=== PATIENT | female | born 1965 | race Caucasian/White ===

== ENCOUNTER 2021-05-12 07:02 | Emergency (ER) | payer BC, SELFPAY ==
--- NOTE | ~2021-05-12 | XR_ITS ---
EXAMINATION: XR ABDOMEN COMPLETE CLINICAL INDICATION: Abdominal distention, rule out obstruction. COMPARISON: Chest radiograph 07/14/2019. TECHNIQUE: 2 AP supine and single AP upright radiographs of the abdomen and pelvis. FINDINGS: Scattered bowel gas is identified in nondistended small and large bowel segments. Presumed cholecystectomy clips are identified in the right upper abdominal quadrant. A single surgical clip is projected over the expected location of the middle segment of the descending colon and may represent an orphaned clip. Scattered pelvic phleboliths are identified. The incidentally visualized lung bases are clear. No free intraperitoneal gas identified. XR/XR abdomen min 2V IMPRESSION: *Normal bowel gas pattern. No specific evidence of intestinal obstruction. No pneumoperitoneum identified.
--- NOTE | ~2021-05-12 | CT_ITS ---
EXAMINATION: CT ABDOMEN AND PELVIS WITHOUT CONTRAST CLINICAL INFORMATION: Diffuse abdominal pain. Questionable free clip in the left abdomen. COMPARISON: Abdominal radiograph done earlier today at 7:52 AM. TECHNIQUE: Multidetector volumetric imaging was performed from the superior aspect of the liver through the pubic symphysis. Sagittal and coronal reformatted images were obtained on the technologist's workstation. This CT examination was performed using dose optimization techniques as appropriate, variously including the following: *Automated exposure control *Adjustment of mA and/or kV according to patient size (this includes techniques or standardized protocols for targeted exams where dose is matched to indication/reason for exam; i.e. extremities or head) *Use of iterative reconstruction technique DLP: 382 mGy-cm FINDINGS: LUNG BASES: There are patchy, groundglass and linear-like opacities dependently in the lung bases. No pleural effusions. LIVER, GALLBLADDER, AND BILIARY TREE: The liver is normal in size, shape, and attenuation. No focal hepatic lesion or biliary ductal dilatation is present. Cholecystectomy. PANCREAS: Unremarkable. SPLEEN: Unremarkable. ADRENAL GLANDS: Unremarkable. KIDNEYS AND URETERS: The kidneys are normal in size, shape, and attenuation. No hydronephrosis, hydroureter, or calculi seen. No perinephric stranding. BLADDER: Unremarkable. GASTROINTESTINAL TRACT: The stomach and the small bowel are nondilated. The appendix is potentially identified on image 38 of series 3 without findings to suggest acute appendicitis. The majority of the colon is under distended limiting assessment of wall thickening and mural abnormalities. There is diverticulosis in the sigmoid colon without significant surrounding inflammatory changes to suspect acute diverticulitis. No bowel obstruction. High density elongated structure in the mesenteric fat of the anterior left upper abdomen measuring 0.8 cm in length (age: 32). ABDOMINAL WALL: No significant hernia is appreciated. LYMPH NODES: No lymphadenopathy by size criteria. A few prominent bilateral inguinal lymph nodes are of uncertain significance. VASCULAR: Atherosclerotic disease. The abdominal aorta is non aneurysmatic. PELVIC VISCERA: No suspicious pelvic lesions. OSSEOUS STRUCTURES: No acute or aggressive osseous abnormalities. Multilevel spondylosis with disc bulges, anterior osteophytes and facet arthropathy. CT/CT abdomen pelvis wo con IMPRESSION: Diverticulosis without active inflammatory bowel changes nor bowel obstruction. Peripheral lower lungs airspace opacities are nonspecific, correlate clinically for atypical infectious or inflammatory processes. High density body within the fat of the left anterior upper omentum could represent a displaced surgical clip or calcification. There are no associated acute abnormalities such as inflammatory changes or free air.
[2021-05-12 07:11] VITALS: BP 115/72; PULSE 95; RESP 18; TEMP 36.9; O2SAT 96; BMI 20.2
--- NOTE | 2021-05-12 07:22 | ED_ITS ---
HPI - Abdominal Pain General Chief Complaint: Abdominal Pain Stated Complaint: Abd pain Time Seen by Provider: 05/12/21 07:22 Source: patient Mode of arrival: ambulatory Limitations: no limitations History of Present Illness HPI narrative: Patient with 3 weeks of vomiting had a CT scan and told she had an ileus. Has not had solid food for 3 weeks. No BMs because she is not eating. She had a Ct scan at [place] and told she had an ileus. She continues with nausea or vomiting and can't get in with her doctors. Patient has lost 8 pound weight loss, She had colonoscopy a few months ago, had a cholecystectomy, appendectomy, csection. MD elicited complaint: abdominal pain Onset (ago): week(s) Pain Consistency: constant Related Data Previous Rx's Medication Instructions Recorded ondansetron 4 mg disintegrating 4 mg PO Q8H 4 Days #12 tab 05/12/21 tablet pantoprazole 40 mg tablet,delayed 40 mg PO DAILY #20 tab 05/12/21 release (Protonix) Allergies Allergy/AdvReac Type Severity Reaction Status Date / Time Penicillins Allergy Unknown RASH Unverified 12/31/19 19:07 [PENICILLINS] morphine Allergy Rash Verified 05/12/21 07:11 Review of Systems Denies Sensory deficit (Neuro) Physical Exam Verdana 4l Vital Signs: Verdana 4d Verdana 4d Vital Signs: Verdana 4d Verdana 4Bd Last Vital Signs Verdana 4d Airplane Rental Clerk New 4d Airplane Rental Clerk New 4d Temp 98.4 F 05/12/21 07:11 Airplane Rental Clerk New 4d Pulse 66 05/12/21 12:00 Airplane Rental Clerk New 4d Resp 17 05/12/21 12:00 BP 123/65 05/12/21 12:00 Pulse Ox 98 05/12/21 12:00 BMI result Body Mass Index 20.2 Const: General: healthy appearing Nutritional Appearance: average body habitus Orientation/consciousness: oriented to person and patient oriented x3 Limitations: no limitations HENMT: Head: Yes normal to inspection Ears: external ears normal General nose exam: Normal external nose present Mouth: Normal oral and palatal mucosa present and oropharynx normal Throat: Yes posterior oropharynx normal Eyes: General: appearance normal, both eyes and all related structures Neck: Other: supple Neck: Yes normal visual inspection Chest: Chest palpation & inspection: normal inspection of the chest Resp: Auscultation: clear to auscultation bilaterally Cardio: Jugular venous distension: no JVD Rate: regular rate Rhythm: regular rhythm Heart sounds: S1 normal heart sound present and S2 normal heart sound present GI: Other: lower abdominal pain right greater than left. Auscultation: normal bowel sounds : General: Yes no CVA tenderness Back/Spine/Pelvis: Back: no CVA tenderness Skin: General skin exam: no rashes or lesions noted Neuro: General: oriented to person and patient oriented x3 Cranial nerves: Yes CN's II-XII intact bilaterally Motor exam (neuro): 5/5 motor strength present throughout Sensory Exam: No Sensory deficit (Neuro) Extrem: General: Yes normal to inspection Psych: Appearance: grossly normal Course Reevaluation(s) Reevaluation #1: review of records from [place] is normal labs, KUB showed mild stool retention no obstruction, CT showed ileus with no masses or obstruction Time: 08:03 Reevaluation #2: Patient with recent COVID, symptoms can be secondary to COVID, she also has a surgical clip in the left abdomen that is not responsible for her symptoms. will continue zofran and start PPI and refer to GI Time: 14:10 MDM - Abdominal Pain Lab Data Result diagrams: 05/12/21 08:10 05/12/21 08:10 Labs: Lab Results 05/12/21 05/12/21 Range/Units 08:10 08:10 WBC 9.4 (4.8-10.8) X10*3/uL RBC 4.22 (4.20-5.50) X10*6/uL Hgb 13.6 (12.0-16.0) g/dl Hct 40.4 (37.0-47.0) % MCV 95.7 (80.0-98.0) fL MCH 32.2 (27.0-33.0) pg MCHC 33.7 (31.0-35.0) g/dl RDW 12.8 (11.0-16.0) % Plt Count 268 (160-400) X10*3/uL MPV 9.2 L (9.4-12.3) fL Immature Gran % (Auto) 0.3 (0.0-0.4) % Neut % (Auto) 63.8 (45-73) % Lymph % (Auto) 25.5 (20-40) % [place] % (Auto) 6.7 (2-11) % Eos % (Auto) 3.2 (0-4) % Baso % (Auto) 0.5 (0-2) % Lymph # (Auto) 2.4 (1.2-4.9) X10*3/uL [place] # (Auto) 0.6 (0.1-1.2) X10*3/uL Eos # (Auto) 0.3 (0.0-0.4) X10*3/uL Baso # (Auto) 0.1 (0.0-0.2) X10*3/uL Abs Immat Gran (auto) 0.03 (0.00-0.03) X10*3/uL Absolute Neuts (auto) 6.0 (2.0-8.3) x10*3/uL Absolute Nucleated RBC 0.000 (0.0-0.012) X10*3/uL Nucleated RBC % (auto) 0.0 (0.0-0.2) /100WBC Sodium 140 (135-145) mmol/L Potassium 4.4 (3.3-5.1) mmol/L Chloride 105 (96-108) mmol/L Carbon Dioxide 30 H (22-29) mmol/L Anion Gap 9 L (12-20) BUN 6 L (9-16) mg/dL Creatinine 0.80 (0.5-1.4) mg/dL Estim Creat Clear Calc 67.1 Estimated GFR > 60 Random Glucose 107 (60-115) mg/dL Calcium 9.3 (8.4-10.2) mg/dL Total Bilirubin 0.5 (0.0-1.0) mg/dL Direct Bilirubin 0.2 (0.0-0.5) mg/dL AST 16 (5-31) U/L ALT 13 (0-31) U/L Alkaline Phosphatase 83 (39-117) U/L Total Protein 6.1 L (6.5-8.0) g/dL Albumin 3.7 (3.5-5.0) g/dL Lipase 9 (8-78) U/L Imaging Data Abdominal x-ray: Radiologist's impression: FINDINGS: Scattered bowel gas is identified in nondistended small and large bowel segments. Presumed cholecystectomy clips are identified in the right upper abdominal quadrant. A single surgical clip is projected over the expected location of the middle segment of the descending colon and may represent an orphaned clip. Scattered pelvic phleboliths are identified. The incidentally visualized lung bases are clear. No free intraperitoneal gas identified. XR/XR abdomen min 2V IMPRESSION: *Normal bowel gas pattern. No specific evidence of intestinal obstruction. No pneumoperitoneum identified. ? CT scan - abdomen: Radiologist's impression: CT/CT abdomen pelvis wo con IMPRESSION: ? Diverticulosis without active inflammatory bowel changes nor bowel obstruction. ? Peripheral lower lungs airspace opacities are nonspecific, correlate clinically for atypical infectious or inflammatory processes. ? High density body within the fat of the left anterior upper omentum could represent a displaced surgical clip or calcification. There are no associated acute abnormalities such as inflammatory changes or free air. ? ? Discharge Plan Discharge Clinical Impression: Gastritis, Vomiting Patient Disposition: Home, Self-Care Instructions: Gastritis (DC), Acute Nausea and Vomiting (ED) Prescriptions: New ondansetron 4 mg tablet,disintegrating 4 mg PO Q8H 4 Days Qty: 12 0RF pantoprazole [Protonix] 40 mg tablet,delayed release (DR/EC) 40 mg PO DAILY Qty: 20 0RF Referrals: Nicholas Yip MD [Physician] - 10 days [facility] Past Medical History Medical History (Updated 05/12/21 @ 14:12 by Percy Lombardo MD) COVID-19 Social History Social History Alcohol intake: current Alcohol intake frequency: a few times a month Patient Tobacco Use Status: Current everyday Tobacco user Use of substances other than those prescribed or required for medical reasons: No Advance Directives: No Advance Directives Information Provided: No
[2021-05-12 08:00] VITALS: BP 122/81; PULSE 69; RESP 16; O2SAT 97
[2021-05-12 08:17] LABS: MANUAL DIFF FLAG NO
[2021-05-12 08:18] LABS: Basophils Absolute Auto 0.1 X10*3/uL (0.0-0.2); Basophils Percent Auto 0.5 % (0-2); Eosinophils Absolute Auto 0.3 X10*3/uL (0.0-0.4); Eosinophils Percent Auto 3.2 % (0-4); Hematocrit 40.4 % (37.0-47.0); Hemoglobin 13.6 g/dl (12.0-16.0); Imm Gran Abs Auto 0.03 X10*3/uL (0.00-0.03); Imm Gran Pct Auto 0.3 % (0.0-0.4); Lymphocytes Absolute Auto 2.4 X10*3/uL (1.2-4.9); Lymphocytes Percent Auto 25.5 % (20-40); Mean Corpuscular HGB Conc 33.7 g/dl (31.0-35.0); Mean Corpuscular Hemoglobin 32.2 pg (27.0-33.0); Mean Corpuscular Volume 95.7 fL (80.0-98.0); Mean Platelet Volume 9.2 fL (9.4-12.3); Monocytes Absolute Auto 0.6 X10*3/uL (0.1-1.2); Monocytes Percent Auto 6.7 % (2-11); Neutrophils Percent Auto 63.8 % (45-73); Platelet Count 268 X10*3/uL (160-400); Red Blood Count 4.22 X10*6/uL (4.20-5.50); Red Cell Distribution Width 12.8 % (11.0-16.0); White Blood Count 9.4 X10*3/uL (4.8-10.8)
[2021-05-12] MEDS: 0.9 % Sodium Chloride 1,000 ML 250 ML IVCONT (08:18)
[2021-05-12] MEDS: ondansetron HCL 4 MG/2 ML VIAL IVPUSH (08:19)
[2021-05-12] MEDS: Pantoprazole Sodium 40 MG/10 ML VIAL IVPUSH (08:19)
[2021-05-12 08:35] LABS: Alanine Aminotransferase 13 U/L (0-31); Albumin Level 3.7 g/dL (3.5-5.0); Alkaline Phosphatase 83 U/L (39-117); Anion Gap 9 (12-20); Aspartate Amino Transferase 16 U/L (5-31); Bilirubin Direct 0.2 mg/dL (0.0-0.5); Bilirubin Total 0.5 mg/dL (0.0-1.0); Blood Urea Nitrogen 6 mg/dL (9-16); Calcium 9.3 mg/dL (8.4-10.2); Carbon Dioxide 30 mmol/L (22-29); Chloride 105 mmol/L (96-108); Creatinine Clr Calc Pharmacy 67.1; Estimated Glomerular Filt Rate > 60; Glucose Random 107 mg/dL (60-115); Lipase 9 U/L (8-78); Potassium 4.4 mmol/L (3.3-5.1); Sodium 140 mmol/L (135-145); Total Protein 6.1 g/dL (6.5-8.0)
[2021-05-12 12:00] VITALS: BP 123/65; PULSE 66; RESP 17; O2SAT 98
== END 2021-05-12 14:25 | disposition home or self-care (01) ==
PROVIDERS: Emergency Provider Emergency Medicine
DX: K29.70 Gastritis, unspecified, without bleeding (principal); R11.10 Vomiting, unspecified; R10.9 Unspecified abdominal pain; F17.200 Nicotine dependence, unspecified, uncomplicated; Z71.6 Tobacco abuse counseling; Z79.899 Other long term (current) drug therapy
CPT/HCPCS: 36415; 74019; 74176; 80048; 80076; 83690; 85025; 96361; 96374; 96375; 99284; 99285; J2405

== ENCOUNTER 2021-05-30 06:34 | Day surgery (SDC) | payer BC, SELFPAY ==
--- NOTE | 2021-05-29 09:53 | P.CONAN_ITS ---
Documented by User: Mariana Lance NP 05/29/21 09:55 HPI - Anesthesia Eval Consult details Narrative: 55yo F for Upper Endoscopy COUNT INCLUDES THE [facility] Past Medical History Medical History (Updated 05/13/21 @ 00:01 by Background Michelle) COVID-19 Surgical History Surgical History (Updated 05/29/21 @ 08:42 by Neena Omalley) History of laparoscopic appendectomy Hx of cholecystectomy Previous section Social History Social History Alcohol intake: current Alcohol intake frequency: a few times a month Patient Tobacco Use Status: Current everyday Tobacco user Tobacco use type: Cigarette Use of substances other than those prescribed or required for medical reasons: No Are you DNR?: No Advance Directives: No Advance Directives Information Provided: Yes Recently lost weight without trying: Yes How much weight loss: 14-23 pounds Nutrition Risks: No Nutritional Risk Patient : No Meds Allergies Allergy/AdvReac Type Severity Reaction Status Date / Time Penicillins [PENICILLINS] Allergy Unknown RASH Verified 05/30/21 07:03 morphine Allergy Rash Verified 05/12/21 07:11 Exam Exam Date and Time: May 29, 2021 0953 Pertinent Lab Results Pertinent Lab Results: Laboratory Tests 05/12/21 05/12/21 08:10 08:10 WBC 9.4 Hgb 13.6 Hct 40.4 Plt Count 268 Sodium 140 Potassium 4.4 Chloride 105 Carbon Dioxide 30 H BUN 6 L Creatinine 0.80 Assessment and Plan Assessment Anesthesia Assessment: Chart Reviewed Documented by User: Osmany Arias MD 05/30/21 07:07 COUNT INCLUDES THE [facility] Past Medical History Medical History (Updated 05/13/21 @ 00:01 by Background Michelle) COVID-19 Family History Family history of problems with anesthesia: No Surgical History Surgical History (Updated 05/29/21 @ 08:42 by Neena Omalley) History of laparoscopic appendectomy Hx of cholecystectomy Previous section History of Problems with Anesthesia: No Social History Social History Alcohol intake: current Alcohol intake frequency: a few times a month Patient Tobacco Use Status: Current everyday Tobacco user Tobacco use type: Cigarette Use of substances other than those prescribed or required for medical reasons: No Are you DNR?: No Advance Directives: No Advance Directives Information Provided: Yes Recently lost weight without trying: Yes How much weight loss: 14-23 pounds Nutrition Risks: No Nutritional Risk Patient : No Meds Allergies Allergy/AdvReac Type Severity Reaction Status Date / Time Penicillins [PENICILLINS] Allergy Unknown RASH Verified 05/30/21 07:03 morphine Allergy Rash Verified 05/12/21 07:11 Exam Airway Mallampati Class: I TM Dist: >3cm Neck ROM: Full Assessment and Plan Assessment Anesthesia Assessment: Anesthesia Plan Discussed and Smoking Cess. Discussed Final Anesthetic Review Family History of Problems with Anesthesia: No History of Problems with Anesthesia: No NPO: Yes ASA Class: II Final Preanesthetic Review: No Changes in Pt Med Stat, Meds/Allgs Chart Reviewed, Consent Obtained/Reviewed and Anes Risks/Benef Reviewed Patient Risk: Intermediate Procedure Risk: Low Anesthetic Plan Anesthetic Plan: MAC: Disposition: Standard PACU
[2021-05-30 06:41] VITALS: BMI 20.2
[2021-05-30 06:45] VITALS: BP 106/64; PULSE 68; RESP 16; TEMP 36.8; O2SAT 95
[2021-05-30] MEDS: Lactated Ringers 1,000 ML 100 ML IVCONT (07:09)
[2021-05-30 08:12] VITALS: BP 107/70; PULSE 71; RESP 18; TEMP 36.4; O2SAT 98
[2021-05-30] MEDS: ondansetron HCL 4 MG/2 ML VIAL IVPUSH (08:17)
--- NOTE | 2021-05-30 08:21 | PM.OP ---
Brief Operative Note Date of Service: 05/30/21 Pre-op diagnosis: Nausea, Abdominal pain Post-op diagnosis: other (Hiatal hernia, GERD, Minimal duodenitis, ? mild narrowing of pylorus) Procedure: EGD with biopsies Surgeon: Merritt Angela Anesthesia: MAC Was an Key Bed Installer used for this Procedure?: No Estimated blood loss (mL): 2.0 Pathology: other (A. Descending duodenum B. Gastric antrum C. EG Junction at 35cm) Condition: stable Disposition: PACU
[2021-05-30 08:26] VITALS: BP 115/74; PULSE 65; RESP 16; TEMP 36.4; O2SAT 95
--- NOTE | 2021-05-30 09:06 | OP_ITS ---
SURGEON: Merritt Angela MD INDICATIONS: The patient presents for evaluation of persistent nausea and abdominal discomfort. Full consent has been obtained from her for this, including risks of bleeding and perforation. PREOPERATIVE DIAGNOSIS: POSTOPERATIVE DIAGNOSIS: PROCEDURE PERFORMED: Esophagogastroduodenoscopy with biopsies. ESTIMATED BLOOD LOSS: COMPLICATIONS: ANESTHESIA: Medication use, monitored anesthesia care. ASSISTANTS: SPECIMENS: PREOPERATIVE DIAGNOSES: Nausea and abdominal discomfort. POSTOPERATIVE DIAGNOSES: Nausea and abdominal discomfort, minimal duodenitis, hiatal hernia, gastroesophageal reflux, question of some narrowing at the pylorus. DESCRIPTION OF PROCEDURE: The patient was placed in the left lateral decubitus position. The Olympus video gastroscope was passed in the posterior oropharynx and upper esophagus under direct vision. The scope was passed slowly into the distal esophagus. The gastroesophageal junction appeared at 35 cm. There was a very minimal irregularity consistent with some reflux but no evidence of esophagitis nor any definitive evidence of Mejia mucosa. There was no esophageal stricture nor ulceration. The scope entered into the stomach. There was a small hiatal hernia. The hiatal hernia mucosa appeared normal. The scope was advanced to pylorus. There was some edema in the pre-pyloric antrum but no sign of any ulceration, mass, nor inflammation. There appeared to be good peristalsis. Initial cannulation of the pylorus was somewhat difficult, and there was a sensation of the scope popping into the duodenum past the pylorus. However, careful inspection of the pyloric channel did not reveal any sign of ulceration nor stricture. The scope was advanced into the descending duodenum and then as far past this as possible. The duodenal mucosa in the 2nd and 3rd portions, as well as beyond this, appeared normal. Multiple biopsies were obtained from the 2nd and 3rd portions of duodenum. The duodenal bulb had some minimal areas of edema and erythema but no erosions or ulceration. Again, the pyloric channel was carefully inspected and definitely appeared to be much more easy to pass and more patent than initially. However, again there was no sign of any stricture nor narrowing, and therefore dilation was not performed. The gastric antrum had good peristalsis. Other than some minimal pre-pyloric edema, there was no sign of any ulceration. Biopsies were obtained from the gastric antrum. The scope was retroflexed visualizing the proximal stomach carefully, which appeared normal, without any sign of mass or ulceration. There was no retained food. The scope was withdrawn back into the esophagus. The esophageal mucosa appeared normal. I did obtain biopsies at the EG junction at 35 cm. The scope was withdrawn from the patient. She tolerated the procedure well and she returned to the recovery area in stable condition. IMPRESSION: 1. Question of narrowing at pyloric channel but no sign of any stricture nor mass. 2. Rule out gastroesophageal reflux disease, H. pylori, and Giardia or celiac disease on duodenal biopsies. 3. Minimal duodenitis in the duodenal bulb. 4. Hiatal hernia with reflux. PLAN: The results of biopsies will be checked. At this point, she has had some improvement, although continues to need Zofran and is having some difficulty eating. At this point, she will continue her Zofran as needed and continue her PPI. Given the findings in regard to the pylorus, she may have had some component of ulceration there as she had been using a lot of ibuprofen, and therefore, this may be improving. The sense of narrowing I felt in regard to the pyloric channel may also have been contributing to her ongoing symptoms. If things continue to improve, we shall simply observe her. If she remains with significant problems then I would recommend obtaining a gastric emptying study and possible upper GI series to assess the patency of the pyloric channel before contemplating repeat endoscopy and balloon dilation of the pylorus. I will see her within a month or so to see how she is doing. She was advised to stay off all aspirin and NSAIDs long-term. MD JESSICA Swift/FELIPE / [id number] ARTURO
== END 2021-05-30 09:07 | disposition home or self-care (01) ==
PROVIDERS: Visit Provider Internal Medicine
PROC: 0DJ08ZZ Inspection of Upper Intestinal Tract, Via Natural or Artificial Opening Endoscopic (ICD-10-PCS; CPT 43235; principal; 2021-05-30 07:30)
DX: R10.13 Epigastric pain (principal); R11.0 Nausea; K29.80 Duodenitis without bleeding; K44.9 Diaphragmatic hernia without obstruction or gangrene; K21.9 Gastro-esophageal reflux disease without esophagitis; Z79.899 Other long term (current) drug therapy; Z88.0 Allergy status to penicillin; Z88.8 Allergy status to other drugs, medicaments and biological substances; Z90.49 Acquired absence of other specified parts of digestive tract; F17.210 Nicotine dependence, cigarettes, uncomplicated
CPT/HCPCS: 43239; 88305; 88342; J2405

== ENCOUNTER 2021-06-21 07:08 | Outpatient (REF) | payer BC, SELFPAY ==
[2021-06-21 07:46] LABS: MANUAL DIFF FLAG NO
[2021-06-21 07:50] LABS: Basophils Absolute Auto 0.1 X10*3/uL (0.0-0.2); Basophils Percent Auto 0.6 % (0-2); Eosinophils Absolute Auto 0.3 X10*3/uL (0.0-0.4); Eosinophils Percent Auto 2.9 % (0-4); Hematocrit 46.7 % (37.0-47.0); Hemoglobin 15.4 g/dl (12.0-16.0); Imm Gran Abs Auto 0.03 X10*3/uL (0.00-0.03); Imm Gran Pct Auto 0.3 % (0.0-0.4); Lymphocytes Percent Auto 27.2 % (20-40); Mean Corpuscular Hemoglobin 31.6 pg (27.0-33.0); Mean Corpuscular Volume 95.7 fL (80.0-98.0); Monocytes Absolute Auto 0.7 X10*3/uL (0.1-1.2); Monocytes Percent Auto 6.1 % (2-11); Neutrophils Absolute Auto 7.1 x10*3/uL (2.0-8.3); Neutrophils Percent Auto 62.9 % (45-73); Platelet Count 321 X10*3/uL (160-400); Red Blood Count 4.88 X10*6/uL (4.20-5.50); Red Cell Distribution Width 13.4 % (11.0-16.0); White Blood Count 11.2 X10*3/uL (4.8-10.8)
[2021-06-21 08:40] LABS: Cholesterol 270 mg/dL; HDL Cholesterol 47 mg/dL; LDL Cholesterol Calculated 188 mg/dl; Triglycerides 177 mg/dL
== END 2021-06-21 07:09 | disposition home or self-care (01) ==
LOC: HO.HSHHMC 07:08
PROVIDERS: Visit Provider Internal Medicine
DX: Z00.00 Encounter for general adult medical examination without abnormal findings (principal)
CPT/HCPCS: 36415; 80061; 85025

== ENCOUNTER 2021-06-23 14:17 | Outpatient (REF) | payer BC, SELFPAY ==
--- NOTE | ~2021-06-23 | MM_ITS ---
EXAMINATION: BONE DENSITOMETRY CLINICAL INDICATION: Menopause. COMPARISON: None (current study represents initial baseline exam). TECHNIQUE: Using a [facility] DXA System (software version: 13.1) manufactured by [employer], dual-energy x-ray absorptiometry was performed of the lumbar spine and left hip. The images are of good technical quality. Summary results are attached. FINDINGS: AP SPINE L1-L2 (excluding L3 and L4): The data of L1-L4 has been changed to exclude the L3 and L4 vertebral bodies, because degenerative changes at these levels may cause overestimation of lumbar spine density. BMD 0.930 g/cm2, Z-score -0.7, T-score -2.0, osteopenia. LEFT FEMUR, NECK: BMD 0.842 g/cm2, Z-score -0.1, T-score -1.4, osteopenia. LEFT FEMUR, TOTAL: BMD 0.963 g/cm2, Z-score 0.6, T-score -0.4, normal. IDENTIFIED RISK FACTORS: Low calcium intake, tobacco use (current smoker), menopause. HISTORY OF FRACTURE: None listed. MEDICATIONS: None listed. MM/XR DEXA axial skeleton IMPRESSION: 1. DIAGNOSIS: Osteopenia based on the lowest T-score value of -2.0 in the lumbar spine applying World Health Organization criteria. 2. 10-YEAR FRACTURE RISK PREDICTION, FRAX: Major osteoporotic fracture (clinical spine, forearm, hip or shoulder) 6.0%. Hip fracture 0.8%. 3. Treatment Recommendations: NOF guidelines recommend consideration for treatment in postmenopausal women and men age 50 and older presenting with the following: -A hip or vertebral (clinical or morphometric) fracture. -T-score less than or equal to -2.5 at the femoral neck or spine after appropriate evaluation to exclude secondary causes. -Low bone mass at the hip or spine and a 10-year fracture probability by FRAX of greater than or equal to 3% for hip fracture or greater than or equal to 20% for major osteoporotic fracture based on the [place] adapted WHO algorithm. 4. Other Recommendations: All treatment decisions require clinical judgment and consideration of individual patient factors, including patient preferences, comorbidities, previous drug use, risk factors not captured in the FRAX model (e.g. frailty, falls, vitamin D deficiency, increased bone turnover, interval significant decline in bone density) and possible under or overestimation of fracture risk by FRAX. Additional medical evaluation for secondary cause of low bone mineral density may be appropriate. FUTURE SCAN RECOMMENDATION: People with diagnosed cases of osteoporosis or at high risk for fracture should have regular bone mineral density tests. For patients eligible for Medicare, routine testing is allowed once every 2 years. The testing frequency can be increased to one year for patients who have rapidly progressing disease, those who are receiving or discontinuing medical therapy to restore bone mass, or have additional risk factors.
== END 2021-06-23 14:18 | disposition home or self-care (01) ==
LOC: HO.MAMMO 14:17
PROVIDERS: PCP Internal Medicine; Visit Provider Internal Medicine
DX: Z13.820 Encounter for screening for osteoporosis (principal); M85.80 Other specified disorders of bone density and structure, unspecified site; Z78.0 Asymptomatic menopausal state
CPT/HCPCS: 77080

== ENCOUNTER 2021-07-11 06:29 | Day surgery (SDC) | payer BC, SELFPAY ==
--- NOTE | 2021-07-10 13:48 | HO.ANESPROP2 ---
Documented by User: Mariana Lance NP 07/10/21 13:52 HPI - Anesthesia Eval Consult details Narrative: 55yo F for Upper Endoscopy with pyloic Balloon Dilitation s/p EGD 05/2021 with MAC [facility] Past Medical History Medical History COVID-19 Family History Family history of problems with anesthesia: No Surgical History Surgical History History of laparoscopic appendectomy Hx of cholecystectomy Previous section History of Problems with Anesthesia: No Social History Social History Alcohol intake: current Alcohol intake frequency: a few times a month Patient Tobacco Use Status: Current everyday Tobacco user Tobacco use type: Cigarette Cigarettes Per Day: 10 Use of substances other than those prescribed or required for medical reasons: No Are you DNR?: No Advance Directives: No Advance Directives Information Provided: Yes Patient : No (menopause) Meds Allergies Allergy/AdvReac Type Severity Reaction Status Date / Time Penicillins [PENICILLINS] Allergy Unknown RASH Verified 05/30/21 07:03 morphine Allergy Rash Verified 05/12/21 07:11 Exam Exam Date and Time: July 10, 2021 1348 Pertinent Lab Results Pertinent Lab Results: Laboratory Tests 05/12/21 06/21/21 08:10 07:15 WBC 11.2 H Hgb 15.4 Hct 46.7 Plt Count 321 Sodium 140 Potassium 4.4 Chloride 105 Carbon Dioxide 30 H BUN 6 L Creatinine 0.80 Assessment and Plan Assessment Anesthesia Assessment: Chart Reviewed Final Anesthetic Review Family History of Problems with Anesthesia: No History of Problems with Anesthesia: No Documented by User: Shannon Mulligan MD 07/11/21 07:27 PMFSH Past Medical History Medical History COVID-19 Functional capacity: wheelchair bound Surgical History Surgical History History of laparoscopic appendectomy Hx of cholecystectomy Previous section Social History Social History Alcohol intake: current Alcohol intake frequency: a few times a month Patient Tobacco Use Status: Current everyday Tobacco user Tobacco use type: Cigarette Cigarettes Per Day: 10 Use of substances other than those prescribed or required for medical reasons: No Are you DNR?: No Advance Directives: No Advance Directives Information Provided: Yes Patient : No (menopause) Meds Allergies Allergy/AdvReac Type Severity Reaction Status Date / Time Penicillins [PENICILLINS] Allergy Unknown RASH Verified 05/30/21 07:03 morphine Allergy Rash Verified 05/12/21 07:11 Exam Airway Mallampati Class: II TM Dist: >3cm Neck ROM: Full Loose/Missing/Broken Teeth: No Heart: RRR Lungs: CTA Assessment and Plan Assessment Anesthesia Assessment: Anesthesia Plan Discussed Final Anesthetic Review NPO: Yes ASA Class: II Final Preanesthetic Review: Meds/Allgs Chart Reviewed, Consent Obtained/Reviewed and Anes Risks/Benef Reviewed Patient Risk: Low Procedure Risk: Intermediate Anesthetic Plan Anesthetic Plan: MAC: Disposition: Standard PACU
[2021-07-11 06:51] VITALS: BMI 19.9
[2021-07-11 06:54] VITALS: BP 114/80; PULSE 74; RESP 16; TEMP 36.9; O2SAT 97
[2021-07-11] MEDS: Lactated Ringers 1,000 ML 100 ML IVCONT (07:00)
[2021-07-11 08:25] VITALS: BP 100/61; PULSE 110; RESP 20; TEMP 36.9; O2SAT 97
--- NOTE | 2021-07-11 08:32 | PM.OP ---
Brief Operative Note Date of Service: 07/11/21 Pre-op diagnosis: Pyloric stricture, Hiatal hernia Post-op diagnosis: other (Same) Procedure: EGD with Balloon Dilation of pyloric stricture up to 18mm Surgeon: Merritt Angela Anesthesia: MAC Was an Turn Machine Operator used for this Procedure?: No Estimated blood loss (mL): 2.0 Pathology: none sent Condition: stable Disposition: PACU
[2021-07-11 08:40] VITALS: BP 113/70; PULSE 82; RESP 18; TEMP 36.6; O2SAT 96
[2021-07-11 08:55] VITALS: BP 111/80; PULSE 75; RESP 18; TEMP 36.9; O2SAT 96
--- NOTE | 2021-07-11 09:16 | OP_ITS ---
SURGEON: Merritt Angela MD INDICATIONS: The patient presents for evaluation of nausea, anorexia, and previously known pyloric stricture. Full consent was obtained from her for this, including risks of bleeding and perforation. PREOPERATIVE DIAGNOSIS: POSTOPERATIVE DIAGNOSIS: PROCEDURE PERFORMED: Esophagogastroduodenoscopy with balloon dilation of the pylorus. ESTIMATED BLOOD LOSS: COMPLICATIONS: ANESTHESIA: Monitored anesthesia care. ASSISTANTS: SPECIMENS: PREOPERATIVE DIAGNOSES: Nausea and history of pyloric stricture. POSTOPERATIVE DIAGNOSES: Nausea and history of pyloric stricture, hiatal hernia. DESCRIPTION OF PROCEDURE: The patient was placed in the left lateral decubitus position. The Olympus video gastroscope was passed in the posterior oropharynx and upper esophagus under direct vision. The scope was passed slowly into the distal esophagus. The gastroesophageal junction appeared at 35 cm. There was a very minimal irregularity that had been seen on the previous exam, but there was no ulceration, mass, nor stricture. Biopsies were not obtained as they had been done last month. The scope entered into the stomach. There was a small hiatal hernia. The scope was advanced to the region of the pylorus. Peristalsis appeared to be subjectively normal. There was no ulceration nor mass. I was able to pass the scope from the stomach into the duodenal bulb, but definitely sensed a popping sensation as the scope passed the pylorus into the duodenal bulb. The duodenum including the bulb was carefully inspected and appeared normal. The scope was withdrawn back in the stomach. At that point, it was definitely easier to pass the scope beyond the pylorus and the pylorus itself did appear to be more patent. Given her history, I did use [employer] pyloric incremental dilating balloons to dilate the pyloric channel from 8 mm to 10 mm, from 12.5 mm to 15 mm, and from 16.5 mm to 18 mm, all at the recommended pressure for between 30 and 60 seconds each. After the dilation with the 18 mm balloon, there was still no definitive heme noted, nor any obvious disruption of the stricture, but clearly the pyloric channel was much more patent without any hesitancy to passage of the scope. The gastric antrum and body appeared normal. The scope was retroflexed visualizing the proximal stomach carefully, which appeared normal, without any sign of mass or ulceration. The scope was straightened. The scope was withdrawn back to the esophagus. The esophageal mucosa appeared normal. The scope was withdrawn from the patient. She tolerated the procedure well and was returned to the recovery area in stable condition. IMPRESSION: 1. Apparent pyloric stricture, status post balloon dilation. 2. Hiatal hernia. PLAN: Patient will continue her daily pantoprazole, but I shall increase this to twice a day for at least 1 month. She was advised to stay off all aspirin, NSAIDs, and avoid alcohol senior care. She will follow up in the office at her planned visit in August. She will continue to use Zofran if needed. She will call me sooner if things worsen before that. MD JESSICA Swift/FELIPE / [phone] MTDD
== END 2021-07-11 09:35 | disposition home or self-care (01) ==
PROVIDERS: Visit Provider Internal Medicine
PROC: (CPT 43245; principal; 2021-07-11 07:30)
DX: K31.1 Adult hypertrophic pyloric stenosis (principal); K44.9 Diaphragmatic hernia without obstruction or gangrene; R11.0 Nausea; Z80.0 Family history of malignant neoplasm of digestive organs; I10 Essential (primary) hypertension; Z79.899 Other long term (current) drug therapy; Z90.49 Acquired absence of other specified parts of digestive tract; Z88.0 Allergy status to penicillin; Z88.8 Allergy status to other drugs, medicaments and biological substances; F17.210 Nicotine dependence, cigarettes, uncomplicated
CPT/HCPCS: 43245; C1726

== ENCOUNTER 2021-07-13 10:45 | Emergency (ER) | payer BC, SELFPAY ==
--- NOTE | ~2021-07-13 | CT_ITS ---
EXAMINATION: CT ABDOMEN AND PELVIS WITH CONTRAST CLINICAL INFORMATION: Constipation, left lower quadrant tenderness COMPARISON: None TECHNIQUE: Multidetector volumetric images were obtained from the superior aspect of the liver through the pubic symphysis following administration 85 mL of Omnipaque 350 intravenous contrast. Sagittal and coronal reformatted images were obtained on the technologist's workstation. Oral contrast: No This CT examination was performed using dose optimization techniques as appropriate, variously including the following: *Automated exposure control *Adjustment of mA and/or kV according to patient size (this includes techniques or standardized protocols for targeted exams where dose is matched to indication/reason for exam; i.e. extremities or head) *Use of iterative reconstruction technique DLP: 377 mGy-cm FINDINGS: LUNG BASES: There is dependent bilateral lower lobe atelectasis. The heart size is normal. LIVER, GALLBLADDER, AND BILIARY TREE: The liver is normal in size, shape, and attenuation. No focal hepatic lesion or biliary ductal dilatation is present. The gallbladder has been surgically removed. PANCREAS: Unremarkable. SPLEEN: Unremarkable. ADRENAL GLANDS: Unremarkable. KIDNEYS AND URETERS: The kidneys are normal in size, shape, and attenuation. No hydronephrosis, hydroureter, or calculi seen. No perinephric stranding. BLADDER: Unremarkable. GASTROINTESTINAL TRACT: There is significant scattered stool, diverticuli and gas seen throughout the colon without significant distention. There is focal mural thickening involving a segment of sigmoid colon in the left pelvis axial image 65/3 and coronal image 41 through 27/6. Findings are suspicious for diverticulitis or colitis.. There is no pericolic fat stranding seen. Appendix is not visualized. ABDOMINAL WALL: No significant hernia is appreciated. LYMPH NODES: Normal. VASCULAR: Unremarkable. PELVIC VISCERA: The uterus is midline and to the left. No free fluid. No adnexal mass. No abnormal pelvic lymphadenopathy. No evidence of herniation. OSSEOUS STRUCTURES: Mild ventral spondylosis throughout lumbar spine. No lytic or sclerotic process seen. CT/CT abdomen pelvis w con IMPRESSION: There is scattered sigmoid colon diverticulosis with mild mural thickening but no pericolic fat stranding. Findings are suspicious for a sigmoid diverticulitis versus colitis. Significant constipation. Fleischner guidelines were followed.
[2021-07-13 10:50] VITALS: BP 171/90; PULSE 92; RESP 18; TEMP 36.9; O2SAT 97; BMI 21.1
--- NOTE | 2021-07-13 11:35 | ED.ABDPAIN ---
HPI - Abdominal Pain General Chief Complaint: Abdominal Pain Stated Complaint: Abd pain Time Seen by Provider: 07/13/21 11:35 Source: patient Mode of arrival: ambulatory Limitations: no limitations History of Present Illness HPI narrative: 55 yo female presents to the ER with constipation x2 weeks and increased abdominal pain for the last 4 days. She states she has chronic constipation but she has been having sharp abdominal pains and tenderness this week which she has never had before. On 07/11 patient had upper endoscopy with pyloric balloon dilatation with Dr. Agnela. She denies any vomiting. She was previous nauseous but this improved after the procedure. She has been taking Dulcolax and using enemas without relief of her constipation. She is passing flatus. MD elicited complaint: abdominal pain Pertinent past history: constipation Onset (ago): day(s) Pain Consistency: constant Location: diffuse and RLQ Severity: moderate Quality: cramping, stabbing and aching Radiation: none Migration to: no migration Exacerbating factors: movement Relieving factors: nothing Context: history of similar episodes Associated symptoms: nausea and constipation Treatments prior to arrival: other (OTC laxatives ) Related Data Previous Rx's Medication Instructions Recorded ondansetron 4 mg disintegrating 4 mg PO Q8H 4 Days #12 tab 05/12/21 tablet pantoprazole 40 mg tablet,delayed 40 mg PO DAILY #20 tab 05/12/21 release (Protonix) ibuprofen 600 mg tablet 600 mg PO Q8H PRN #14 tab 07/13/21 levofloxacin 500 mg tablet 500 mg PO DAILY #5 tab 07/13/21 metronidazole 500 mg tablet 500 mg PO BID #10 tab 07/13/21 peg 3350-electrolytes 236 240 ml PO Q10M PRN #4000 ml 07/13/21 gram-22.74 gram-6.74 gram-5.86 gram solution (Golytely) Allergies Allergy/AdvReac Type Severity Reaction Status Date / Time Penicillins [PENICILLINS] Allergy Unknown RASH Verified 07/13/21 10:50 morphine Allergy Rash Verified 07/13/21 10:50 Review of Systems Review of Systems Constitutional: No Fever, No Chills ENT/Mouth: No sore throat, No Rhinorrhea, No Swallowing Difficulty Cardiovascular: No Chest Pain, No SOB, No Orthopnea, No Edema Respiratory: No Cough, No Sputum, No Wheezing, No dyspnea Gastrointestinal: + Nausea, No Vomiting, No Diarrhea, + abdominal Pain, +Constipation No Hematochezia, No Melena Genitourinary: No Dysuria, No Urinary Frequency, No Hematuria Musculoskeletal: No joint pain, No Myalgias Skin: No Skin Lesions, + rash Neuro: No Weakness, No Numbness, No Dizziness, No Headache Psych: +Anxiety/Panic, No Depression Heme/Lymph: No Bruising, No Lymphadenopathy Endocrine: No Polyuria, No Polydipsia PMFSH Past Medical History Medical History COVID-19 Surgical History History of laparoscopic appendectomy Hx of cholecystectomy Previous section Social History Social History Alcohol intake: current Alcohol intake frequency: holidays/special occasions only Patient Tobacco Use Status: Never used Tobacco Tobacco use type: Cigarette Cigarettes Per Day: 10 Use of substances other than those prescribed or required for medical reasons: No Advance Directives: No Patient : No Physical Exam ED Vital Signs: Vital Signs - 24 hr 07/13/21 10:50 07/13/21 14:00 Temperature 98.5 F Pulse Rate 92 74 Respiratory Rate 18 18 Blood Pressure 171/90 H 142/74 H Pulse Oximetry 97 98 BMI result Body Mass Index 21.1 Appearance: Alert. Oriented X3. No acute distress. Eyes: Pupils equal, round and reactive to light. ENT: Pharynx normal. Neck: Normal inspection. Neck supple. CVS: Normal heart rate and rhythm. Pulses normal. Respiratory: No respiratory distress. Breath sounds normal. Abdomen: surgical scar in epigastric area s/p cholecystectomy. macolpapular rash over entire abdomen. Soft but guarded with tenderness in the LLQ. decreased but present +BS x4 Skin: Skin warm and dry. Normal skin color. Normal skin turgor. rash on truck and LE Extremities: No lower extremity edema. Neuro: Oriented X 3. No motor deficit. No sensory deficit. Course Course Course Narrative: 55 y/o female presenting with constipation and abdominal pain. On examination she is guarding with LLQ tenderness. Will get lab workup and CT scan for further evaluation. Reevaluation(s) Reevaluation #1: WBC 12.3. CT with significant constipation. No evidence of obstruction. Possible mild sigmoid diverticulitis or colitis. No abscess or free fluid. Discussed results with patient. Will plan to start PO abx for diverticulitis (she is going to [place] and is afraid to go without abx). Will also start NSAID for pain. Her constipation will be treated with Mg++ citrate and Golytely at home. She does not want to wait here to have a BM. She is stable for d/c home with above plan, return precautions discussed. MDM - Abdominal Pain Lab Data Result diagrams: 07/13/21 12:20 07/13/21 12:20 Labs: Lab Results 07/13/21 07/13/21 07/13/21 Range/Units 12:20 12:20 12:20 WBC 12.3 H (4.8-10.8) X10*3/uL RBC 4.83 (4.20-5.50) X10*6/uL Hgb 15.3 (12.0-16.0) g/dl Hct 46.2 (37.0-47.0) % MCV 95.7 (80.0-98.0) fL MCH 31.7 (27.0-33.0) pg MCHC 33.1 (31.0-35.0) g/dl RDW 12.8 (11.0-16.0) % Plt Count 259 (160-400) X10*3/uL MPV 9.2 L (9.4-12.3) fL Immature Gran % (Auto) 0.4 (0.0-0.4) % Neut % (Auto) 72.3 (45-73) % Lymph % (Auto) 19.5 L (20-40) % [place] % (Auto) 5.4 (2-11) % Eos % (Auto) 1.8 (0-4) % Baso % (Auto) 0.6 (0-2) % Lymph # (Auto) 2.4 (1.2-4.9) X10*3/uL [place] # (Auto) 0.7 (0.1-1.2) X10*3/uL Eos # (Auto) 0.2 (0.0-0.4) X10*3/uL Baso # (Auto) 0.1 (0.0-0.2) X10*3/uL Abs Immat Gran (auto) 0.05 H (0.00-0.03) X10*3/uL Absolute Neuts (auto) 8.9 H (2.0-8.3) x10*3/uL Absolute Nucleated RBC 0.000 (0.0-0.012) X10*3/uL Nucleated RBC % (auto) 0.0 (0.0-0.2) /100WBC Sodium 135 (135-145) mmol/L Potassium 4.3 (3.3-5.1) mmol/L Chloride 98 (96-108) mmol/L Carbon Dioxide 33 H (22-29) mmol/L Anion Gap 8 L (12-20) BUN 6 L (9-16) mg/dL Creatinine 0.81 (0.5-1.4) mg/dL Estim Creat Clear Calc 67.7 Estimated GFR > 60 Random Glucose 101 (60-115) mg/dL Calcium 9.5 (8.4-10.2) mg/dL Magnesium 2.8 H (1.6-2.6) mg/dL Total Bilirubin 0.4 (0.0-1.0) mg/dL Direct Bilirubin 0.2 (0.0-0.5) mg/dL AST 23 D (5-31) U/L ALT 25 (0-31) U/L Alkaline Phosphatase 106 D (39-117) U/L Total Protein 7.1 (6.5-8.0) g/dL Albumin 4.4 (3.5-5.0) g/dL Urine Color YELLOW Urine Appearance CLEAR Urine pH 7.0 (5.0-8.0) Ur Specific [place] 1.010 (1.005-1.025) Urine Protein NEG (NEG-TRACE) MG/DL Urine Glucose (UA) NEG (NEG) MG/DL Urine Ketones NEG (NEG) MG/DL Urine Blood NEG (NEG) Urine Nitrite NEG (NEG) Ur Leukocyte Esterase NEG (NEG) Critical Care Time Critical Care Time Critical Care Time: No Discharge Plan Discharge Clinical Impression: Diverticulitis, Constipation Patient Disposition: Home, Self-Care Instructions: Diverticulitis (ED), Constipation (DC), Diverticulitis Diet (ED) Additional Instructions: Your CT scan showed significant constipation. Also showed possible mild sigmoid diverticulitis versus colitis. Take the prescribed antibiotics as directed. Do not drink alcohol while taking Flagyl, this will make her ill. Prescriptions: New levofloxacin 500 mg tablet 500 mg PO DAILY Qty: 5 0RF metronidazole 500 mg tablet 500 mg PO BID Qty: 10 0RF ibuprofen 600 mg tablet 600 mg PO Q8H PRN (Reason: pain) Qty: 14 0RF peg 3350-electrolytes [Golytely] 236-22.74-6.74 -5.86 gram recon soln 240 ml PO Q10M PRN (Reason: constipation) Qty: 4000 0RF Rx Instructions: until fecal effluent is clear No Action ondansetron 4 mg tablet,disintegrating 4 mg PO Q8H 4 Days Qty: 12 0RF pantoprazole [Protonix] 40 mg tablet,delayed release (DR/EC) 40 mg PO DAILY Qty: 20 0RF Interventions: ED Discharge Assessment Last Done: 07/13/21 14:48 Discharge Date/Time: 07/13/21 14:56
[2021-07-13] MEDS: 0.9 % Sodium Chloride 1,000 ML 999 ML IVCONT (12:23)
[2021-07-13 12:27] LABS: MANUAL DIFF FLAG NO
[2021-07-13 12:28] LABS: Basophils Absolute Auto 0.1 X10*3/uL (0.0-0.2); Basophils Percent Auto 0.6 % (0-2); Eosinophils Absolute Auto 0.2 X10*3/uL (0.0-0.4); Eosinophils Percent Auto 1.8 % (0-4); Hematocrit 46.2 % (37.0-47.0); Hemoglobin 15.3 g/dl (12.0-16.0); Imm Gran Abs Auto 0.05 X10*3/uL (0.00-0.03); Imm Gran Pct Auto 0.4 % (0.0-0.4); Lymphocytes Absolute Auto 2.4 X10*3/uL (1.2-4.9); Lymphocytes Percent Auto 19.5 % (20-40); Mean Corpuscular HGB Conc 33.1 g/dl (31.0-35.0); Mean Corpuscular Hemoglobin 31.7 pg (27.0-33.0); Mean Corpuscular Volume 95.7 fL (80.0-98.0); Mean Platelet Volume 9.2 fL (9.4-12.3); Monocytes Absolute Auto 0.7 X10*3/uL (0.1-1.2); Monocytes Percent Auto 5.4 % (2-11); Neutrophils Absolute Auto 8.9 x10*3/uL (2.0-8.3); Neutrophils Percent Auto 72.3 % (45-73); Platelet Count 259 X10*3/uL (160-400); Red Blood Count 4.83 X10*6/uL (4.20-5.50); Red Cell Distribution Width 12.8 % (11.0-16.0); White Blood Count 12.3 X10*3/uL (4.8-10.8)
[2021-07-13 12:29] LABS: Appearance Urine CLEAR; Color Urine YELLOW; Glucose Urine UA NEG (NEG); Leukocyte Esterase Urine NEG (NEG); Nitrite Urine NEG (NEG); Urine Blood NEG (NEG); Urine Ketones NEG (NEG); Urine Protein NEG (NEG-TRACE)
[2021-07-13 12:46] LABS: Alanine Aminotransferase 25 U/L (0-31); Albumin Level 4.4 g/dL (3.5-5.0); Alkaline Phosphatase 106 U/L (39-117); Anion Gap 8 (12-20); Aspartate Amino Transferase 23 U/L (5-31); Bilirubin Direct 0.2 mg/dL (0.0-0.5); Bilirubin Total 0.4 mg/dL (0.0-1.0); Blood Urea Nitrogen 6 mg/dL (9-16); Calcium 9.5 mg/dL (8.4-10.2); Carbon Dioxide 33 mmol/L (22-29); Chloride 98 mmol/L (96-108); Creatinine Clr Calc Pharmacy 67.7; Estimated Glomerular Filt Rate > 60; Glucose Random 101 mg/dL (60-115); Magnesium 2.8 mg/dL (1.6-2.6); Potassium 4.3 mmol/L (3.3-5.1); Sodium 135 mmol/L (135-145); Total Protein 7.1 g/dL (6.5-8.0)
[2021-07-13] MEDS: iohexoL 350 MG/ML 100 ML INFUS..BTL IV (13:15)
[2021-07-13 14:00] VITALS: BP 142/74; PULSE 74; RESP 18; O2SAT 98
[2021-07-13] MEDS: Magnesium Citrate 300 ML SOLUTION PO (14:37)
== END 2021-07-13 14:56 | disposition home or self-care (01) ==
PROVIDERS: Physician Assistant; Emergency Provider Emergency Medicine; PCP Internal Medicine
DX: K57.32 Diverticulitis of large intestine without perforation or abscess without bleeding (principal); K59.00 Constipation, unspecified; F17.200 Nicotine dependence, unspecified, uncomplicated; Z90.49 Acquired absence of other specified parts of digestive tract
CPT/HCPCS: 36415; 74177; 80048; 80076; 81003; 83735; 85025; 96360; 99284; Q9967

== ENCOUNTER 2021-08-09 06:53 | Outpatient (REF) | payer BC, SELFPAY ==
[2021-08-09 08:04] LABS: Anion Gap 11 (12-20); Blood Urea Nitrogen 14 mg/dL (9-16); Calcium 9.6 mg/dL (8.4-10.2); Carbon Dioxide 26 mmol/L (22-29); Chloride 101 mmol/L (96-108); Estimated Glomerular Filt Rate > 60; Glucose Random 120 mg/dL (60-115); Potassium 4.6 mmol/L (3.3-5.1); Sodium 133 mmol/L (135-145)
[2021-08-09 08:26] LABS: Free T4 (Free Thyroxine) 0.98 ng/dL (0.71-1.85); Thyroid Stimulating Hormone 2.29 uIU/mL (0.32-4.0)
[2021-08-09 08:37] LABS: Vitamin B12 306 pg/mL (200-900)
== END 2021-08-09 06:54 | disposition home or self-care (01) ==
LOC: HO.HSHHMC 06:53
PROVIDERS: Visit Provider Internal Medicine
DX: I10 Essential (primary) hypertension (principal); K21.9 Gastro-esophageal reflux disease without esophagitis
CPT/HCPCS: 36415; 80048; 82607; 84439; 84443

== ENCOUNTER 2021-09-25 09:25 | Outpatient (REF) | payer BC, SELFPAY ==
--- NOTE | ~2021-09-25 | FL_ITS ---
EXAMINATION: XR FLUOROSCOPY UPPER GI WITH AIR CLINICAL INFORMATION: Status post pyloric dilation with repeat symptoms of nausea and fullness. COMPARISON: None TECHNIQUE: Routine upper GI exam was performed in upright and lying position. FINDINGS: Following oral administration of thick barium and effervescent granules, there is normal propagation of bolus from the oral cavity through the pharynx, esophagus into stomach without any evidence of obstruction, narrowing or stricture. There is mild indentation of the cervical esophagus at the C6-C7 disc level from moderate ventral spondylosis. On placing patient supine and prone lying, the course, caliber and peristalsis of the stomach, duodenal bulb and the sweep is normal. There is mild gastroesophageal reflux without hiatal hernia. The gallbladder has been surgically removed. FLUOROSCOPY TIME: 3.4 minutes DOSE AREA PRODUCT: 26.087 uGy-m2 (microgray-meter squared) FL/FL upper GI w air IMPRESSION: Mild posterior cervical esophageal indentation from moderate ventral spurring at the C6-C7 disc level but no obstruction is seen. Mild gastroesophageal reflux without hiatal hernia.
== END 2021-09-25 09:26 | disposition home or self-care (01) ==
LOC: HO.XRAY 09:25
PROVIDERS: PCP Internal Medicine; Visit Provider Internal Medicine
DX: K31.1 Adult hypertrophic pyloric stenosis (principal); R11.0 Nausea
CPT/HCPCS: 74246

== ENCOUNTER 2021-09-27 10:53 | Day surgery (SDC) | payer BC, SELFPAY ==
--- NOTE | 2021-09-26 11:53 | HO.ANESPROP2 ---
HPI - Anesthesia Eval Consult details Narrative: 56yo F for Upper Endoscopy with Balloon Dilitation s/p same 06/2021 with MAC PMFSH Past Medical History Medical History COVID-19 Family History Family history of problems with anesthesia: No Surgical History Surgical History History of laparoscopic appendectomy Hx of cholecystectomy Previous section History of Problems with Anesthesia: No Social History Social History Alcohol intake: current Alcohol intake frequency: holidays/special occasions only Patient Tobacco Use Status: Current everyday Tobacco user Tobacco use type: Cigarette Cigarettes Per Day: 8 Smoked in Last 30 Days: Yes Patient Interested in Nicotine Replacement: No Patient Given Instructions on How to Stop Smoking: No Second Hand Smoke Exposure: No Are you DNR?: No Advance Directives: No Advance Directives Information Provided: Yes Patient : No Meds Allergies Allergy/AdvReac Type Severity Reaction Status Date / Time Penicillins [PENICILLINS] Allergy Unknown RASH Verified 07/13/21 10:50 morphine Allergy Rash Verified 07/13/21 10:50 Exam Exam Date and Time: September 26, 2021 1153 Pertinent Lab Results Pertinent Lab Results: Laboratory Tests 07/13/21 08/09/21 12:20 07:00 WBC 12.3 H Hgb 15.3 Hct 46.2 Plt Count 259 Sodium 133 L Potassium 4.6 Chloride 101 Carbon Dioxide 26 BUN 14 D Creatinine 0.83 Assessment and Plan Assessment Anesthesia Assessment: Chart Reviewed Final Anesthetic Review Family History of Problems with Anesthesia: No History of Problems with Anesthesia: No
[2021-09-27 11:40] VITALS: BP 98/73; PULSE 72; RESP 16; TEMP 36.9; O2SAT 97
[2021-09-27] MEDS: Lactated Ringers 1,000 ML 100 ML IVCONT (11:40)
--- NOTE | 2021-09-27 12:08 | P.CONAN_ITS ---
[facility] Past Medical History Medical History COVID-19 Patient : No Family History Family history of problems with anesthesia: No Surgical History Surgical History History of laparoscopic appendectomy Hx of cholecystectomy Previous section History of Problems with Anesthesia: No Social History Social History Alcohol intake: current Alcohol intake frequency: holidays/special occasions only Patient Tobacco Use Status: Current everyday Tobacco user Tobacco use type: Cigarette Cigarettes Per Day: 8 Smoked in Last 30 Days: Yes Patient Interested in Nicotine Replacement: No Patient Given Instructions on How to Stop Smoking: No Second Hand Smoke Exposure: No Are you DNR?: No Advance Directives: No Advance Directives Information Provided: Yes Patient : No (menopausal) Meds Allergies Allergy/AdvReac Type Severity Reaction Status Date / Time Penicillins [PENICILLINS] Allergy Unknown RASH Verified 07/13/21 10:50 morphine Allergy Rash Verified 07/13/21 10:50 Active Medications: Current Medications Albuterol Sulfate (Albuterol Sulfate (0.083%) 2.5 Mg/3 Ml Vial.Neb) 2.5 mg INHALE ONCE PRN PRN Reason: Shortness of Breath/Wheezing Lactated Ringer's (Lr) 1,000 mls @ 100 mls/hr IVCONT .Q10H DELMA Last Admin: 09/27/21 11:40 Dose: 100 mls/hr Exam Exam Date and Time: September 27, 2021 1208 Height,Weight and Vital Signs: Height 54 ft Weight 52.163 kg Last Vital Signs Temp 98.4 F 09/27/21 11:40 Pulse 72 09/27/21 11:40 Resp 16 09/27/21 11:40 BP 98/73 09/27/21 11:40 Pulse Ox 97 09/27/21 11:40 O2 Del Method 09/27/21 11:40 Airway Mallampati Class: II TM Dist: >3cm Neck ROM: Full Heart: rrr Lungs: clear Assessment and Plan Final Anesthetic Review Family History of Problems with Anesthesia: No History of Problems with Anesthesia: No Anesthetic Plan Anesthetic Plan: MAC: Disposition: Standard PACU
--- NOTE | 2021-09-27 12:56 | PM.OP ---
Brief Operative Note Date of Service: 09/27/21 Pre-op diagnosis: Pyloric stricture Procedure: EGD with pyloric balloon dilation from 12mm to 15mm, and then with an 18mm balloon. Surgeon: Merritt Angela Anesthesia: MAC Was an Committee Member used for this Procedure?: No Estimated blood loss (mL): 0 Pathology: none sent Condition: stable Disposition: PACU
[2021-09-27 13:00] VITALS: BP 106/71; PULSE 80; RESP 16; TEMP 36.9; O2SAT 96
[2021-09-27 13:15] VITALS: BP 116/77; PULSE 63; RESP 16; TEMP 36.9; O2SAT 98
--- NOTE | 2021-09-27 14:22 | OP_ITS ---
SURGEON: Merritt Angela MD INDICATIONS: The patient presents for evaluation of recurrent pyloric stricture. Full consent has been obtained from her for this, including risks of bleeding and perforation. PREOPERATIVE DIAGNOSIS: Pyloric stricture. POSTOPERATIVE DIAGNOSIS: PROCEDURE PERFORMED: Esophagogastroduodenoscopy with balloon dilation of pylorus. ESTIMATED BLOOD LOSS: COMPLICATIONS: ANESTHESIA: Monitored anesthesia care. ASSISTANTS: SPECIMENS: POSTOPERATIVE DIAGNOSES: Pyloric stricture, hiatal hernia. DESCRIPTION OF PROCEDURE: The patient was placed in the left lateral decubitus position. The Olympus video gastroscope was passed in the posterior oropharynx and upper esophagus under direct vision. The scope was passed slowly to the distal esophagus. The gastroesophageal junction appeared normal at 35 cm. There was no esophagitis. The scope entered into the stomach. There was a small hiatal hernia. The scope was advanced to pylorus. The pyloric channel was now relatively easily passed with the gastroscope as opposed to her 2 previous procedures in which I could not pass the gastroscope. There was no sign of any ulcer nor inflammation in the pyloric channel. The scope was advanced to the descending duodenum. The duodenum including the bulb appeared normal. The scope was withdrawn back in the stomach. The gastric antrum and body appeared normal with good peristalsis. The scope was retroflexed visualizing the proximal stomach carefully, which appeared normal, without any sign of mass or ulceration. The scope was straightened. I used a [employer] incremental balloon to dilate the pyloric channel with a 12 mm to a 15 mm balloon at the recommended pressures for 60 seconds each. I then used another balloon to dilate the pyloric channel up to 18 mm at the recommended pressure for 60 seconds. Post-dilation it was definitely very easy to move the scope into and out of the duodenum. The pyloric channel was clearly more visibly patent as well. However, there was no sign of any ulceration nor any obvious heme or disruption of the pyloric channe from the dilationl. The scope was retroflexed visualizing the proximal stomach carefully, which appeared normal, without any sign of mass or ulceration. The scope was straightened and withdrawn back into the esophagus. The esophageal mucosa appeared normal. The scope was withdrawn from the patient. She tolerated procedure well and was returned to recovery area in stable condition. IMPRESSION: 1. Pyloric stricture, status post balloon dilation. 2. Hiatal hernia. PLAN: The patient will continue pantoprazole, but I shall increase that again to b.i.d. She recently decreased it from b.i.d. to just once a day and perhaps that contributed to why things got worse recently. In any event, I think she may need surgical consultation to review things further as to a more permanent solution for these episodes of pyloric stenosis that respond well to the initial balloon dilation, but seem to only be lasting for 6-8 weeks. She was advised to stay off all aspirin and NSAIDs long-term. MD JESSICA Swift/FELIPE / [id number] MTDD
== END 2021-09-27 13:50 | disposition home or self-care (01) ==
PROVIDERS: PCP Internal Medicine; Visit Provider Internal Medicine
PROC: (CPT 43245; principal; 2021-09-27 11:50)
DX: K31.1 Adult hypertrophic pyloric stenosis (principal); R11.0 Nausea; K44.9 Diaphragmatic hernia without obstruction or gangrene; I10 Essential (primary) hypertension; Z87.19 Personal history of other diseases of the digestive system; Z79.899 Other long term (current) drug therapy; Z88.0 Allergy status to penicillin; Z88.8 Allergy status to other drugs, medicaments and biological substances; F17.210 Nicotine dependence, cigarettes, uncomplicated; Z90.49 Acquired absence of other specified parts of digestive tract; Z86.16 Personal history of COVID-19
CPT/HCPCS: 43245; C1726

== ENCOUNTER 2024-08-31 12:29 | Day surgery (SDC) | payer OTHER, SELFPAY ==
--- OUTSIDE RECORDS SUMMARY | 2024-08-13 10:04 | XMS_ITS | Clinical Summary ---
Author Organization [address] Address [address] [place] [address] Phone Care Team Providers Care Cashier Office Name Role Phone Talon Shelby MD Primary Care Provider [phone] Surgical History Surgery Date Site/Laterality Comments SECTION PROCEDURE: [place] DELIVERY ONLY; COMMENT: x1 TONSILLECTOMY ADENOIDECTOMY, BILATERAL MYRINGOTOMY AND TUBES PROCEDURE: [place] TONSILLECTOMY & ADENOIDECTOMY <AGE 12; COMMENT: age 18 APPENDECTOMY PROCEDURE: [place] APPENDECTOMY; COMMENT: age 21 CHOLECYSTECTOMY PROCEDURE: [place] CHOLECYSTECTOMY; COMMENT: age 27 Medical History Medical History Date Comments Other specified personal his tory presenting hazards to health(V15.89) DX:Other specifie d personal history presenting hazards to health(V15.89); COMMENT: Moderate Dysplasia Family History Medical History Relation Name Comments Colon cancer Maternal Grandmother Relation Name Status Comments Brother Alive Daughter Alive Father Alive Maternal Grandfather Maternal Grandmother Mother Alive Paternal Grandfather Paternal Grandmother 78 Sister 1 Alive Sister 2 Alive Son Alive Social History Tobacco Use Types Packs/Day Years Used Date Smoking Tobacco: Every Day Cigarettes Smokeless Tobacco: Never Alcohol Use Standard Drinks/Week Comments Yes 0 (1 standard drink = 0.6 oz pur e alcohol) Comments Unknown Sex and Gender Information Value Date Recorded Sex Assigned at Not on file Legal Sex Female 5:10 PM EST Gender Identity Not on file Sexual Orientation Not on file Obstetrics History Para Term AB IAB SAB Ectopic Multiple Livin g Live Births 2 2 2 2 Date Outcome GA Total Labor Labor/2nd/3rd Weight Sex Type Anes PTL Kylie A1 A5 Name Clin Term Term Last Filed Vital Signs Vital Sign Reading Time Taken Comments Blood Pressure 103/71 08/08/2023 9:20 AM EDT Pulse 100 08/08/2023 9:20 AM EDT Temperature - - Respiratory Rate - - Oxygen Saturation - - Inhaled Oxygen Concentration - - Weight 57.7 kg (127 lb 3.2 oz) 08/08/2023 9:20 A M EDT Height 162.6 cm (5' 4 ) 08/08/2023 9:20 AM EDT Body Mass Index 21.83 08/08/2023 9:20 AM EDT Plan of Treatment Health Maintenance Due Date Last Done Comments Hepatitis B Vaccines (1 of 3 - 19+ 3-dose series) 1984 Pneumococcal Vaccine: 50+ Years (1 of 2 - PCV) 1984 Pneumococcal Vaccine: Pediatrics (0 to 5 Years) and At-Risk Patients (6 to 64 Years) (1 of 2 - PCV) 1984 Zoster Vaccines (1 of 2) 08/17/2015 Cholesterol Screening (Lipid Panel) 03/14/2022 Colorectal Cancer Screening: Colonoscopy 03/14/2022 Depression Screening 03/14/2022 HIV Screening 03/14/2022 Hepatitis C Screening 03/14/2022 Social Influencers of Health Screening 03/14/2022 DTaP,Tdap,and Td Vaccines (2 - Td or Tdap) 07/19/2023 07/18/2013 COVID-19 Vaccine ( season) 2023 03/20/2022, 02/22/2021, 05/24/2020, Additional history exists Hypertension/CHF/CAD Annual BMP Blood Test 04/27/2024 Breast Cancer Screening 05/04/2026 05/04/19, 04/27/2024, 04/22/2020, Additional history exists Cervical Cancer Screening: Pap Smear 08/07/2026 08/08/2023 Osteoporosis Screening (Bone Density Screening) 04/27/2034 04/27/2024 Influenza Vaccine Completed 02/27/2024, , 01/12/2022, Additional history exists HIB Vaccines Aged Out No longer eligi ble based on patient's age to complete this topic HPV Vaccines Aged Out No longer eligi ble based on patient's age to complete this topic Hepatitis A Vaccines Aged Out No long er eligible based on patient's age to complete this topic IPV Vaccines Aged Out No longer eligi ble based on patient's age to complete this topic MMR Vaccines Aged Out No longer eligi ble based on patient's age to complete this topic Meningococcal ACWY Vaccine Aged Out N o longer eligible based on patient's age to complete this topic Meningococcal B Vaccine Aged Out No l onger eligible based on patient's age to complete this topic RSV Immunization Patients Under 20 months Aged Out No longer eligible based on patient's age to complete this topic Varicella Vaccines Aged Out No longer eligible based on patient's age to complete this topic Procedures Procedure Name Priority Date/Time Associated Diagnosis Comments MG MAMMO DIGITAL DIAGNOSTIC W ALEBRTO BILAT Routine 05/04/2024 2:18 PM EST Abnormal mammogram BD BONE DENSITY DXA AXIAL SKELETON Routine 04/27/2024 4:00 PM EST Screening for osteoporosis PAP SMEAR Routine 08/08/2023 from Last 3 Months or Most Recently Relevant to Health Maintenance Results * MG Mammo Digital Diagnostic w Alberto bilat (05/04/2024 2:18 PM EST) Anatomical Region Laterality Modality Breast Bilateral Mammography 05/04/2024 3:00 PM EST Impressions 05/04/2024 3:19 PM EST Bilateral mammographic abnormalities correspond with benign cysts. ??No further workup needed. ??Routine bilateral annual screening mammography recommended. BREAST DENSITY: C - The breasts are heterogeneously dense which may obscure small masses. BI-RADS CATEGORY: 2 - BENIGN RECOMMENDATION: Screening bilateral mammogram is recommended in 1 year. MAMMO LOCATION: [facility], [address] [place] [address], [id number], . -------- FINAL REPORT -------- Dictated By: Elma Monge Dictated Date: 05/04/2024 15:00 ET Assigned Physician: Elma Monge Reviewed and Electronically Signed By: Elma Monge Signed Date: 05/04/2024 15:19 ET Workstation ID: [id number] Transcribed By: Self Edit Transcribed Date: 05/04/2024 15:00 ET Narrative 05/04/2024 3:19 PM EST EXAM: MG MAMMO DIGITAL DIAGNOSTIC W ALBERTO BILAT, US BREAST LIMITED BILAT HISTORY: Call back from a screening mammogram. FINDINGS: Right breast: 90 ML and spot compression CC views performed with tomosynthesis. ?? -The asymmetry in the anterior retroareolar region on the CC projection does not persist. ?? -The 0.5 cm asymmetry in the anterior inner breast persists on the CC projection without a clear correlate on the MLO and ML views. ??Sonography was subsequently performed in the upper inner and lower inner breast. ??0.6 x 0.4 x 0.3 cm lobular cyst at the 3 o'clock position, 1 cm from the nipple, which likely corresponds with the mammographic abnormality as it has similar size and shape to the mammographic abnormality. Left breast: 90 ML and spot compression MLO and CC views performed with tomosynthesis. ??Persistent 0.5 cm circumscribed lesion in the upper breast near the 12 o'clock position at the middle/posterior depth. ?? Targeted sonography was subsequently performed. ??0.5 x 0.4 x 0.2 cm cyst at the 11-12 o'clock position, 3 cm from nipple, which likely corresponds with the mammographic abnormality. ??A 0.5 x 0.4 x 0.1 cm cyst was also identified at the 12 o'clock position, 6 cm from the nipple. Procedure Note Elma Monge MD - 05/04/2024 EXAM: MG MAMMO DIGITAL DIAGNOSTIC W ALBERTO BILAT, US BREAST LIMITED BILAT HISTORY: Call back from a screening mammogram. FINDINGS: Right breast: 90 ML and spot compression CC views performed with tomosynthesis. -The asymmetry in the anterior retroareolar region on the CC projectiondoes not persist. -The 0.5 cm asymmetry in the anterior inner breast persists on the CCprojection without a clear correlate on the MLO and ML views. Sonographywas subsequently performed in the upper inner and lower inner breast. 0.6x 0.4 x 0.3 cm lobular cyst at the 3 o'clock position, 1 cm from thenipple, which likely corresponds with the mammographic abnormality as ithas similar size and shape to the mammographic abnormality. Left breast: 90 ML and spot compression MLO and CC views performed with tomosynthesis.Persistent 0.5 cm circumscribed lesion in the upper breast near the 12o'clock position at the middle/posterior depth. Targeted sonography was subsequently performed. 0.5 x 0.4 x 0.2 cm cystat the 11-12 o'clock position, 3 cm from nipple, which likely correspondswith the mammographic abnormality. A 0.5 x 0.4 x 0.1 cm cyst was alsoidentified at the 12 o'clock position, 6 cm from the nipple. IMPRESSION: Bilateral mammographic abnormalities correspond with benign cysts. Nofurther workup needed. Routine bilateral annual screening mammographyrecommended. BREAST DENSITY: C - The breasts are heterogeneously dense which mayobscure small masses. BI-RADS CATEGORY: 2 - BENIGN RECOMMENDATION: Screening bilateral mammogram is recommended in 1 year. MAMMO LOCATION: [facility], [address] [place] [address], [id number], . -------- FINAL REPORT -------- Dictated By: Elma Monge Dictated Date: 05/04/2024 15:00 ET Assigned Physician: Elma Monge Reviewed and Electronically Signed By: Elma Monge Signed Date: 05/04/2024 15:19 ET Workstation ID: [id number] Transcribed By: Self Edit Transcribed Date: 05/04/2024 15:00 ET Stormy Oliveira CNM IM BI PROCEDURES Final Resul t * BD Bone Density DXA Axial Skeleton (04/27/2024 4:00 PM EST) Anatomical Region Laterality Modality Wrist, Hip, L-spine Bone Densito metry 04/28/2024 1:37 AM EST Impressions 04/28/2024 1:39 AM EST Bone mineral density is consistent with osteopenia by WHO criteria. 10 year fracture risk with major osteoporotic fracture is 7.9%, hip fracture 0.9% [facility] Department of Internal Medicine recommends using National Osteoporosis Foundation (NOF) guidelines in treatment decisions related to osteoporosis. NOF guidelines suggest considering treatment for postmenopausal women and men aged 50 or older presenting with the following: History of hip or vertebral fracture. T-score = -2.5 (DXA) at the femoral neck, total hip, or spine, after appropriate evaluation to exclude secondary causes. Low bone mass (T-score between -1.0 and -2.5 at the femoral neck or spine) AND a 10-year probability of a hip fracture = 3% OR a 10-year probability of a major osteoporosis-related fracture = 20% based on the [place]-adapted WHO algorithm Please note that all treatment decisions require clinical judgment and consideration of individual patient factors, including patient preferences, co-morbidities, previous drug use, risk factors not captured in the FRAX model (e.g., frailty, falls, vitamin D deficiency, increased bone turnover, interval significant decline in bone density) and possible under- or over-estimation of fracture risk by FRAX. Optional alternative screening schedule based on juancarlos Zepeda., [facility] May 03, 2011 for patients with osteopenia (based on hip BMD T-score) is as follows: * ??advanced osteopenia (T scores -2.00 to -2.49), BMD testing every year * ??moderate osteopenia (T scores -1.50 to -1.99), BMD testing every 5 years mild osteopenia or normal BMD (T scores -1.50 and higher), BMD testing every 15 years -------- FINAL REPORT -------- Dictated By: Indy Maza Dictated Date: 04/28/2024 01:37 ET Assigned Physician: Indy Maza Reviewed and Electronically Signed By: Indy Maza Signed Date: 04/28/2024 01:39 ET Workstation ID: [id number] Transcribed By: Self Edit Transcribed Date: 04/28/2024 01:37 ET Narrative 04/28/2024 1:39 AM EST BONE DENSITY SCAN (DEXA) ? FINDINGS: Lumbar Spine T-score is -1.2. ?? (SD relative to 20-29 y/o adult) Z-score is +01. ??(SD relative to age matched peers) This is considered osteopenia by WHO criteria. Left Hip T-score is -1.9. Z-score is -0.6. This is considered osteopenia by WHO criteria. Comparison: Not available. Procedure Note Indy Maza MD - 04/28/2024 BONE DENSITY SCAN (DEXA) FINDINGS: Lumbar Spine T-score is -1.2. (SD relative to 20-29 y/o adult) Z-score is +01. (SD relative to age matched peers) This is considered osteopenia by WHO criteria. Left Hip T-score is -1.9. Z-score is -0.6. This is considered osteopenia by WHO criteria. Comparison: Not available. IMPRESSION: Bone mineral density is consistent with osteopenia by WHO criteria. 10 year fracture risk with major osteoporotic fracture is 7.9%, hipfracture 0.9% [facility] Department of Internal Medicine recommendsusing National Osteoporosis Foundation (NOF) guidelines in treatmentdecisions related to osteoporosis. NOF guidelines suggest consideringtreatment for postmenopausal women and men aged 50 or older presentingwith the following: History of hip or vertebral fracture. T-score = -2.5 (DXA) at the femoral neck, total hip, or spine, afterappropriate evaluation to exclude secondary causes. Low bone mass (T-score between -1.0 and -2.5 at the femoral neck or spine)AND a 10-year probability of a hip fracture = 3% OR a 10-year probabilityof a major osteoporosis-related fracture = 20% based on the [place]-adapted WHOalgorithm Please note that all treatment decisions require clinical judgment andconsideration of individual patient factors, including patientpreferences, co-morbidities, previous drug use, risk factors not capturedin the FRAX model (e.g., frailty, falls, vitamin D deficiency, increasedbone turnover, interval significant decline in bone density) and possibleunder- or over-estimation of fracture risk by FRAX. Optional alternative screening schedule based on juancarlos Zepeda., NEJJanuary 2011 for patients with osteopenia (based on hip BMD T-score)is as follows: * advanced osteopenia (T scores -2.00 to -2.49), BMD testing every year * moderate osteopenia (T scores -1.50 to -1.99), BMD testing every 5years mild osteopenia or normal BMD (T scores -1.50 and higher), BMD testingevery 15 years -------- FINAL REPORT -------- Dictated By: Indy Maza Dictated Date: 04/28/2024 01:37 ET Assigned Physician: Indy Maza Reviewed and Electronically Signed By: Indy Maza Signed Date: 04/28/2024 01:39 ET Workstation ID: [id number] Transcribed By: Self Edit Transcribed Date: 04/28/2024 01:37 ET us Stormy Oliveira CNM IMG DXA PROCEDURES Final Resu lt * Pap smear (08/08/2023) 08/08/2023 Narrative HISTORICAL TESTING LAB RESULTING AGENCY - 08/14/2023 1:36 PM EDT [id number] THINPREP PAP, IMAGED: NEGATIVE FOR SQUAMOUS INTRAEPITHELIAL LESION AND MALIGNANCY MOISES ODOM(ASCP) (CASE ELECTRONICALLY SIGNED 08 14 2023) RESULT OF APTIMA HIGH RISK HPV ASSAY: HIGH RISK HPV: ??NEGATIVE (SEROTYPES 16,18,31,33,35,39,45,51,52,56,58,59,66,68) COMPLETED ON 2023-08-12 ADEQUACY: SATISFACTORY ENDOCERVICAL/TRANSFORMATION ZONE COMPONENT PRESENT. SOURCE: THINPREP PAP HPV ANY DX: ??REFLEX 16 AND 18, CERVICAL, IMAGED CLINICAL INFORMATION: HPV ANY DIAGNOSIS. HORMONES IUD, PAP HX NEGATIVE, [Z12.4] us Stormy Oliveira CNM LAB CYTOLOGY ORDERABLES Final Result HISTORICAL TESTING LAB RESULTING AGENCY from Last 3 Months or Most Recently Relevant to Health Maintenance Insurance [employer] Care Teams Cashier Office Relationship Specialty Start Date End Date Talon Shelby MD [address] [place] [address] Dr Missy MA PCP - General Internal Medicine 05/04/24
[2024-08-27 14:51] VITALS: BMI 20.8
--- NOTE | 2024-08-28 09:35 | HO.ANESPROP2 ---
Documented by User: Mariana Lance NP 08/28/24 09:35 HPI - Anesthesia Eval Consult details Narrative: 59yo F for Upper Endoscopy with Balloon Dilitation PMFSH Past Medical History Medical History Elevated cholesterol HTN (hypertension) Postoperative fistula Diverticulitis COVID-19 Family History Family history of problems with anesthesia: No Surgical History Surgical History Hx of pyloroplasty H/O colonoscopy History of esophagogastroduodenoscopy (EGD) Previous section Hx of cholecystectomy History of laparoscopic appendectomy History of Problems with Anesthesia: No Social History Social History Are you a primary child care assistant to a significant other at home: No Do you presently have visiting nurse or other home services: No Alcohol intake: current Alcohol intake frequency: holidays/special occasions only Patient Tobacco Use Status: Former Tobacco user Tobacco use type: Cigarette Second Hand Smoke Exposure: No Have you been hit, kicked, punched, or otherwise hurt by someone within the past year? If so, by whom?: No Are you DNR?: No Advance Directives: No Advance Directives Information Provided: Yes Poor oral hygiene: No Meds Allergies Allergy/AdvReac Type Severity Reaction Status Date / Time Penicillins [PENICILLINS] Allergy Unknown RASH Verified 08/31/24 12:47 morphine Allergy Rash Verified 08/31/24 12:47 Home Medications ?Medication ?Instructions ?Recorded ?Confirmed ?Last Taken ?Type atorvastatin 10 mg tablet 10 mg PO DAILY 08/27/24 08/27/24 Unknown History estradiol 1 mg tablet 1 mg PO DAILY 08/27/24 08/27/24 Unknown History lisinopril 10 mg tablet 10 mg PO DAILY 08/27/24 08/27/24 08/31/24 History Exam Height,Weight and Vital Signs: Height 5 ft 4 in Weight 54.975 kg Assessment and Plan Assessment Anesthesia Assessment: Chart Reviewed Final Anesthetic Review Family History of Problems with Anesthesia: No History of Problems with Anesthesia: No Documented by User: Shannon Mulligan MD 08/31/24 14:19 PMFSH Past Medical History Medical History Elevated cholesterol HTN (hypertension) Postoperative fistula Diverticulitis COVID-19 Surgical History Surgical History Hx of pyloroplasty H/O colonoscopy History of esophagogastroduodenoscopy (EGD) Previous section Hx of cholecystectomy History of laparoscopic appendectomy Social History Social History Are you a primary child care assistant to a significant other at home: No Do you presently have visiting nurse or other home services: No Alcohol intake: current Alcohol intake frequency: holidays/special occasions only Patient Tobacco Use Status: Former Tobacco user Tobacco use type: Cigarette Second Hand Smoke Exposure: No Have you been hit, kicked, punched, or otherwise hurt by someone within the past year? If so, by whom?: No Are you DNR?: No Advance Directives: No Advance Directives Information Provided: Yes Poor oral hygiene: No Meds Allergies Allergy/AdvReac Type Severity Reaction Status Date / Time Penicillins [PENICILLINS] Allergy Unknown RASH Verified 08/31/24 12:47 morphine Allergy Rash Verified 08/31/24 12:47 Home Medications ?Medication ?Instructions ?Recorded ?Confirmed ?Last Taken ?Type atorvastatin 10 mg tablet 10 mg PO DAILY 08/27/24 08/27/24 Unknown History estradiol 1 mg tablet 1 mg PO DAILY 08/27/24 08/27/24 Unknown History lisinopril 10 mg tablet 10 mg PO DAILY 08/27/24 08/27/24 08/31/24 History Exam Airway Mallampati Class: II TM Dist: >3cm Neck ROM: Full Loose/Missing/Broken Teeth: No Heart: RRR Lungs: CTA Assessment and Plan Assessment Anesthesia Assessment: Anesthesia Plan Discussed Final Anesthetic Review NPO: Yes ASA Class: II Final Preanesthetic Review: Meds/Allgs Chart Reviewed, Consent Obtained/Reviewed and Anes Risks/Benef Reviewed Patient Risk: Low Procedure Risk: Intermediate Anesthetic Plan Anesthetic Plan: MAC: Disposition: Standard PACU
[2024-08-31 12:45] VITALS: BMI 20.9
[2024-08-31] MEDS: Lactated Ringers 1,000 ML 100 ML IVCONT (12:49)
[2024-08-31 12:57] VITALS: BP 109/76; PULSE 77; RESP 18; TEMP 36.8; O2SAT 98
[2024-08-31 14:48] VITALS: BP 107/62; PULSE 82; RESP 18; TEMP 36.7; O2SAT 97
--- NOTE | 2024-08-31 14:56 | P.BOP_ITS ---
Brief Operative Note Date of Service: 08/31/24 Pre-op diagnosis: GERD, Hx of pyloric stricture Post-op diagnosis: other (Same, HH) Procedure: EGD with bx Surgeon: Merritt Angela MD Anesthesia: MAC Was an Plastic Surgery Nurse used for this Procedure?: No Estimated blood loss (mL): 2.0 Pathology: other (A. Gastric antrum B. EG Junction at 35cm) Condition: stable Disposition: PACU
[2024-08-31 15:03] VITALS: BP 114/70; PULSE 82; RESP 18; TEMP 36.7; O2SAT 97
[2024-08-31 15:24] VITALS: BP 115/75; PULSE 82; RESP 18; TEMP 36.9; O2SAT 98
--- NOTE | 2024-09-01 01:34 | OP_ITS ---
DATE OF SERVICE: 08/31/2024 SURGEON: Merritt Angela MD INDICATIONS: The patient presents for evaluation of abdominal discomfort, early satiety, and nausea with occasional vomiting. Full consent has been obtained from her for this, including risks of bleeding and perforation. PREOPERATIVE DIAGNOSIS: POSTOPERATIVE DIAGNOSIS: PROCEDURE PERFORMED: Esophagogastroduodenoscopy with biopsies. ESTIMATED BLOOD LOSS: COMPLICATIONS: ANESTHESIA: Medication used, monitored anesthesia care. ASSISTANTS: SPECIMENS: PREOPERATIVE DIAGNOSES: Early satiety, gastroesophageal reflux, nausea with vomiting, and history of pyloric stricture. POSTOPERATIVE DIAGNOSES: Early satiety, gastroesophageal reflux, nausea with vomiting, and history of pyloric stricture, hiatal hernia, no evidence of pyloric stricture. DESCRIPTION OF PROCEDURE: The patient was placed in the left lateral decubitus position. The Olympus video gastroscope was passed in the posterior oropharynx and upper esophagus under direct vision. The scope was passed slowly to the distal esophagus. The gastroesophageal junction appeared at 35 cm. This area appears slightly irregular consistent with reflux and possibly Mejia's esophagus. The scope entered the stomach. There was a small hiatal hernia. The scope was advanced to the pylorus. The pylorus was easily passed with the gastroscope into the 2nd and 3rd portions of duodenum. The 2nd and 3rd portions of the duodenum appeared normal. The duodenal bulb appeared normal. The pyloric channel appeared patent and without any sign of stricture nor obstruction. There was no ulceration. The scope was withdrawn back to the stomach. The gastric antrum and body appeared normal other than some scarring along the anterior wall consistent with possibly a previous G-tube or the previous issue with a gastrocutaneous fistula. Peristalsis was present, although was possibly somewhat diminished. The scope was retroflexed visualizing the proximal stomach carefully, which appeared normal, without any sign of mass or ulceration. The scope was straightened and withdrawn back to the esophagus. Biopsies were obtained at 35 cm. Proximal to this, the esophageal mucosa appeared normal. The scope withdrawn from the patient. She tolerated the procedure well and was returned to the recovery area in stable condition. IMPRESSION: 1. Patent pylorus without any evidence of recurrent pyloric stricture. 2. Rule out Helicobacter pylori. 3. Rule out Mejia's esophagus. PLAN: The patient has been on pantoprazole once a day. I shall give her a trial of using that twice a day to see if that gives her any relief. We may need to do a gastric emptying study at some point in regard to her symptoms. I will also make sure she has a prescription for Zofran to use as needed. She will be seen in followup as well. MD JESSICA Swift/FELIPE / [phone] MTDD
== END 2024-08-31 15:35 | disposition home or self-care (01) ==
PROVIDERS: PCP Internal Medicine; Visit Provider Internal Medicine
PROC: (CPT 43239; principal; 2024-08-31 14:30)
DX: R10.13 Epigastric pain (principal); R11.2 Nausea with vomiting, unspecified; R68.81 Early satiety; K21.9 Gastro-esophageal reflux disease without esophagitis; K44.9 Diaphragmatic hernia without obstruction or gangrene; R19.2 Visible peristalsis; Z87.19 Personal history of other diseases of the digestive system; I10 Essential (primary) hypertension; Z79.899 Other long term (current) drug therapy; Z88.0 Allergy status to penicillin; Z90.49 Acquired absence of other specified parts of digestive tract; Z98.890 Other specified postprocedural states; Z87.891 Personal history of nicotine dependence
CPT/HCPCS: 43239; 88305; 88313; 88342; J2003; J2704

== ENCOUNTER 2025-03-01 10:35 | Outpatient (AMB) | payer OTHER, SELFPAY ==
--- NOTE | 2025-03-01 10:38 | A.OFFPC_ITS ---
Vital Signs 03/01/25 10:47 03/01/25 11:22 Height 5 ft 3.35 in Weight 53.977 kg BMI 20.8 BP 100/66 102/66 Blood Pressure Location Lt brachial Position Sitting Respiration 20 Pulse 87 Pulse Source Pulse Oximeter Temp 98.8 F Temp Source Temporal Artery Scan Pulse Oximetry (%) 97 Oxygen Delivery Method Room Air Intake Visit Reasons: bilateral eye rash Interventional Physiatrist Required: No Accompanied by: Self / Same As Patient Allergies Penicillins (PENICILLINS) Allergy (Unknown, Verified 03/01/25 10:38) RASH Medication List - Last Reconciled 03/01/25 by RENZO Nagel atorvastatin 10 mg PO DAILY cholecalciferol (vitamin D3) 25 mcg PO DAILY estradiol 1 mg PO DAILY medroxyprogesterone 5 mg PO DAILY omega-3 fatty acids 1,000 mg PO DAILY pantoprazole (Protonix) 40 mg PO DAILY Tobacco use date assessed: 03/01/25 Dental Screening Dental Screen Date: 03/01/25 HPI HPI Comments History of Present Illness Details 59-year-old female with history of hyper lipidemia, hypertension, vitamin-D deficiency, pyloric stenosis, cigarette smoking presenting to the office today for management of chronic conditions and to establish care as well as for annual physical exam. She was a former patient of Dr. Shelby, last seen about 3 years ago. Lives with her fiance, feels safe there. 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 Social alcohol use, no more than 2. History of cigarettes, quit about 11 months ago. Started at 18, smoked 1/2 PPD though did quick for short periods. Occasionally uses THC gummies. No illicit drugs. Exercises 4 times weekly doing cardio and weights. Follows a healthy diet. History of pyloric stenosis --> gastric tear. S/p laparoscopic pyloroplasty in 2021 with postop leak and subsequent laparotomy. Follows with Dr. Angela, last endoscopy 08/2024 without recurrent pyloric stricture and negative for Mejia's esophagus or H pylori. Continues on pantoprazole 40 mg daily. HLD-last LDL 188, on atorvastatin 10 mg HTN-blood pressure 102/66 on recheck. On lisinopril 10 mg daily History of cigarette smoking-as above. Interested in lung cancer screenings Concerns: Redness and flaking/dryness of the medical aspect of the eye lids, watery eyes. Itchy. Tried aquafor but this burned. No exposures. Had blurred vision R eye. Currently guillermo not have an eye doctor Health Maintenance: FH dad and maternal GM colon cancer- colonoscopies up-to-date, Q 5 years Mammos- Yara Jackson, 05/08, scheduled [employer]- Dr. Warren, paps UTD Due for exam Dental exams twice yearly Wears sunscreen Reviewed past medical, surgical, family, social history ROS: General: No fevers, malaise, unintentional weight loss HEENT: No blurred vision, diplopia. No sore throat, nasal congestion, rhinorrhea, sinus pain, ear pain. No hearing loss Neck - no adenopathy Cardiovascular: No chest pain, palpitations, or leg edema Respiratory: No shortness of breath, wheezing, cough Breast: No pain, palpable lumps, nipple inversion GI: No dysphagia, odynophagia, globus sensation. No abdominal pain, nausea, vomiting, diarrhea, constipation, melena, hematochezia : No dysuria, hematuria, increased urinary frequency, decreased urinary output. [employer]: No abn vaginal bleeding or discharge MSK: No myalgia, back pain, arthralgias Neuro: No headaches, weakness, paresthesias Psych: no depression/anxiery. No AH/VH. No SI/HI Skin: No rashes or lesions EXAM: Constitutional - Awake and Alert, No apparent distress Eyes - PERRLA, EOMI. Anicteric Ears - external ears normal, canals clear, TMs intact and pearly gamez with good cone of light Nose- septum midline, nares clear, no sinus tenderness Mouth/throat- mucosa moist, tongue and uvula midline, no erythema/edema or tonsillar adenopathy. Neck-trachea midline, thyroid symmetric without palpable nodules, no adenopathy Cardiovascular - S1S2, RRR, No edema Respiratory - Normal lung expansion, Normal respiratory effort, No respiratory distress, CTA bilaterally Gastrointestinal - NT / ND; +BS; No rebound or guarding - No CVA tenderness Extremities - no calf tenderness bilaterally, no swelling Musculoskeletal - Normal inspection, normal ROM Skin - Warm/Dry, no concerning lesions Neurological - Alert & oriented x3, CN II-XII in tact, 5/5 strength BUE and BLE, 2+ patellar reflexes, sensation intact Psychological - Appropriate affect PFSH Medical History Vitamin D deficiency History of cigarette smoking Elevated cholesterol HTN (hypertension) Postoperative fistula Diverticulitis COVID-19 Surgical History Hx of pyloroplasty H/O colonoscopy History of esophagogastroduodenoscopy (EGD) Previous section Hx of cholecystectomy History of laparoscopic appendectomy Family History Father Colon cancer Maternal Grandmother Colon cancer Mother Hyperlipemia Social History Are you a primary animal care assistant to a significant other at home: No Do you presently have visiting nurse or other home services: No Alcohol intake: current Alcohol intake frequency: holidays/special occasions only Patient Tobacco Use Status: Former Tobacco user Tobacco use type: Cigarette Second Hand Smoke Exposure: No Physical exam (Primary Care) Vital Signs: Last Vital Signs Temp 98.8 F 03/01/25 10:47 Pulse 87 03/01/25 10:47 Resp 20 03/01/25 10:47 BP 102/66 03/01/25 11:22 Pulse Ox 97 03/01/25 10:47 Oxygen Delivery Method Room Air 03/01/25 10:47 BMI result Body Mass Index 20.8 Tobacco/Smoking Status: Tobacco use Status Tobacco use date assessed 03/01/25 03/01/25 10:40 Patient Tobacco Use Status Former Tobacco user 03/01/25 10:40 Tobacco use type Cigarette 03/01/25 10:40 Coding Level of Care Code New Pt Prev Care 40-64y(82302) Diagnoses Routine medical exam Z00.00 HTN (hypertension) I10 Elevated cholesterol E78.00 Seasonal allergies J30.2 Assessment & Plan Assessment & Plan (1) Routine medical exam: Code(s): Z00.00 - Encounter for general adult medical examination without abnormal findings Category: Medical Plan: 59-year-old female with history of hyperlipidemia, hypertension, pyloric stenosis/postoperative fistula presenting for management of chronic conditions, to establish care, for annual physical exam. Plan as below (2) HTN (hypertension): Code(s): I10 - Essential (primary) hypertension Category: Medical Plan: Low normal. Discontinue lisinopril. Check blood pressures at home, message office in 1 week with readings. (3) Elevated cholesterol: Code(s): E78.00 - Pure hypercholesterolemia, unspecified Category: Medical Plan: Lipid panel ordered, ASCVD risk to be calculated pending results. Continue ator vastatin (4) Seasonal allergies: Code(s): J30.2 - Other seasonal allergic rhinitis Category: Medical Plan: Suspect redness/dryness/tearing is related to seasonal allergies. Trial pataday, claritin. Cannot exclude blepharitis. Given erythromycin. Warm compresses. Avoid to use caution when applying topicals around the eyes. Plan Routine screening labs as ordered below Continue with screening mammograms, Pap smears, colonoscopies Continue following for annual skin exams and use sun protection Annual eye exams Dental exams twice yearly Wear seat belt in car Recommend regular exercise and healthy diet Follow up in 1 year for annual exam Commended on smoking cessation. Referred for lung cancer screening Orders: Orders Complete Blood Count Auto Diff Today E78.00 - Pure hypercholesterolemia, unspecified, I10 - Essential (primary) hypertension, Z00.00 - Encounter for general adult medical examination without abnormal findings Hemoglobin A1c Today E78.00 - Pure hypercholesterolemia, unspecified, I10 - Essential (primary) hypertension, Z00.00 - Encounter for general adult medical examination without abnormal findings Lipid Panel Today E78.00 - Pure hypercholesterolemia, unspecified, I10 - Essential (primary) hypertension, Z00.00 - Encounter for general adult medical examination without abnormal findings Liver Panel Today E78.00 - Pure hypercholesterolemia, unspecified, I10 - Essential (primary) hypertension, Z00.00 - Encounter for general adult medical examination without abnormal findings Basic Metabolic Panel Today E78.00 - Pure hypercholesterolemia, unspecified, I10 - Essential (primary) hypertension, Z00.00 - Encounter for general adult medical examination without abnormal findings TSH reflex Free T4 Today E78.00 - Pure hypercholesterolemia, unspecified, I10 - Essential (primary) hypertension, Z00.00 - Encounter for general adult medical examination without abnormal findings Vitamin D 25-OH Total Today E78.00 - Pure hypercholesterolemia, unspecified, I10 - Essential (primary) hypertension, Z00.00 - Encounter for general adult medical examination without abnormal findings LDL Cholesterol Direct Today E78.00 - Pure hypercholesterolemia, unspecified Referrals Lung Cancer Screening Referral Z87.891 - Personal history of nicotine dependence Medications: New loratadine (Allergy Relief (loratadine)) 10 mg PO DAILY 90 caps 1RF olopatadine 0.2% 1 drp ophthalmic (eye) DAILY PRN 5 mL 0RF itching erythromycin 0.5 inches ophthalmic (eye) TID 3.5 grams 0RF 7 days Discontinued ondansetron Discontinued Reason: Patient Completed Course 4 mg PO Q8H 4 days 12 tabs 0RF lisinopril Discontinued Reason: Doctor's Order 10 mg PO DAILY 90 tabs 1RF
[2025-03-01 10:47] VITALS: BP 100/66; PULSE 87; RESP 20; TEMP 37.1; O2SAT 97; BMI 20.8
[2025-03-01 11:22] VITALS: BP 102/66
== END 2025-03-01 11:31 | disposition home or self-care (01) ==
PROVIDERS: PCP Physician Assistant; Visit Provider Physician Assistant
DX: Z00.00 Encounter for general adult medical examination without abnormal findings (principal); I10 Essential (primary) hypertension; E78.00 Pure hypercholesterolemia, unspecified; J30.2 Other seasonal allergic rhinitis